=== PATIENT | female | born 1940 | race Two or more races ===

== ENCOUNTER 2017-10-06 15:26 | Outpatient (CLI) | payer OTHER | END 2017-10-06 15:51 | disposition home or self-care (01) | LOC: RAD 501 15:26 | DX: M19.041 Primary osteoarthritis, right hand (principal); M19.042 Primary osteoarthritis, left hand; M06.09 Rheumatoid arthritis without rheumatoid factor, multiple sites ==

== ENCOUNTER 2018-04-09 15:01 | Outpatient (CLI) | payer OTHER | END 2018-04-09 15:25 | disposition home or self-care (01) | LOC: RAD 15:01 | DX: M17.0 Bilateral primary osteoarthritis of knee (principal) ==

== ENCOUNTER → 2018-04-10 | Outpatient (CLI) | payer OTHER | END | disposition home or self-care (01) | LOC: NUCLEAR 10:00 | DX: I73.9 Peripheral vascular disease, unspecified (principal) ==

== ENCOUNTER → 2018-04-13 | Outpatient (CLI) | payer OTHER | END | disposition home or self-care (01) | LOC: NUCLEAR 11:03 | DX: I73.89 Other specified peripheral vascular diseases (principal); I87.2 Venous insufficiency (chronic) (peripheral) ==